=== PATIENT | male | born 1990 | race Asian ===

== ENCOUNTER 2017-05-11 22:04 | Inpatient (IN) | payer OTHER ==
[~2017-05-11] VITALS: Ht 182.9 cm; Wt 100.2 kg
[2017-05-11 22:23] LABS: BASOPHIL (%) 0.4 % (0-1); BASOPHIL COUNT 0.1 K/uL (0-0.1); EOSINOPHIL (%) 2.2 % (0-5); EOSINOPHIL COUNT 0.3 K/uL (0-0.3); HEMATOCRIT 46.3 % (38.0-50.0); HEMOGLOBIN 15.8 G/DL (12.5-16.6); IMMATURE GRANULOCYTE (%) 0.4 % (0.0-0.7); LYMPHOCYTE (%) 22.8 % (15-42); LYMPHOCYTE COUNT 2.7 K/uL (1.0-2.8); MCH 27.9 PG (29.0-34.0); MCHC 34.1 G/DL (30.0-36.0); MCV 81.8 FL (86-99); MONOCYTE (%) 5.4 % (3-12); MONOCYTE COUNT 0.6 K/uL (0-0.8); NEUTROPHIL (%) 68.8 % (45-76); PLATELET COUNT 224 K/uL (156-360); RBC DIS.WIDTH-SD 38.5 % (39-53); RED BLOOD COUNT 5.66 M/uL (4.00-5.50); WHITE BLOOD COUNT 11.6 K/uL (4.1-10.2)
[2017-05-11 22:33] LABS: AMYLASE 49 IU/L (1-118); CHLORIDE 103 mEq/L (99-109); POTASSIUM 3.6 mEq/L (3.7-5.4); SODIUM 137 mEq/L (136-147)
[2017-05-11 22:35] LABS: GLUCOSE 103 mg/dL (70-99)
[2017-05-11 22:38] LABS: SERUM ETHYL ALCOHOL < 10 mg/dL
[2017-05-11 22:39] LABS: CREATININE 0.9 mg/dL (0.6-1.3)
[2017-05-11 22:40] LABS: GFR ESTIMATE (CALCULATED) > 59 mL/min/ (58.99-99999); UREA NITROGEN (BUN) 16 mg/dL (9-23)
[2017-05-11 22:42] LABS: LIPASE 17 U/L (1.0-51.0)
[2017-05-12 00:55] LABS: APPEARANCE CLEAR ((CLEAR)); BILIRUBIN NEGATIVE; BLOOD NEGATIVE; COLOR YELLOW ((YELLOW)); GLUCOSE (STRIP) NEGATIVE; KETONES NEGATIVE; LEUKOCYTES NEGATIVE; NITRITE NEGATIVE; PROTEIN (STRIP) NEGATIVE; SPECIFIC GRAVITY 1.013 (1.000-1.030); UCUL ADDED? NO; UROBILINOGEN 0.2 MG/DL (0.2-1.0)
[2017-05-12 01:08] LABS: AMPHETAMINE NEGATIVE (500 ng/mL); BARBITURATES NEGATIVE (200 ng/mL); BENZODIAZEPINES NEGATIVE (150 ng/mL); BUPRENORPHINE NEGATIVE (10 ng/mL); COCAINE NEGATIVE (150 ng/mL); METHADONE NEGATIVE (200 ng/mL); METHAMPHETAMINE NEGATIVE (500 ng/mL); OPIATES (MORPHINE) PRESUMPTIVE POSITIVE (100 ng/mL); OXYCODONE NEGATIVE (100 ng/mL); PHENCYCLIDINE NEGATIVE (25 ng/mL); PROPOXYPHENE NEGATIVE (300 ng/mL); THC CANNABINOIDS NEGATIVE (50 ng/mL); TRICYCLIC ANTIDEPRESSANTS NEGATIVE (300 ng/mL)
[2017-05-12 04:56] VITALS: BP 117/64
[2017-05-12 08:14] VITALS: BP 100/53
[2017-05-12 11:50] VITALS: BP 113/58
[2017-05-12 16:13] VITALS: BP 116/64
[2017-05-12 18:59] LABS: HEMATOCRIT 41.4 % (38.0-50.0); HEMOGLOBIN 13.6 G/DL (12.5-16.6); MCH 26.8 PG (29.0-34.0); MCHC 32.9 G/DL (30.0-36.0); MCV 81.7 FL (86-99); PLATELET COUNT 213 K/uL (156-360); RBC DIS.WIDTH-CV 13.1 % (11.8-14.6); RBC DIS.WIDTH-SD 38.5 % (39-53); RED BLOOD COUNT 5.07 M/uL (4.00-5.50); WHITE BLOOD COUNT 13.4 K/uL (4.1-10.2)
[2017-05-12 19:06] LABS: CHLORIDE 101 MEQ/L (99-109); POTASSIUM 3.7 MEQ/L (3.7-5.4); SODIUM 135 MEQ/L (136-147)
[2017-05-12 19:12] LABS: CREATININE 0.8 MG/DL (0.6-1.3); GFR ESTIMATE (CALCULATED) > 59 mL/min/ (58.99-99999); GLUCOSE 126 mg/dL (70-99); UREA NITROGEN (BUN) 12 mg/dL (9-23)
[2017-05-12 23:29] VITALS: BP 114/62
[2017-05-13 08:34] VITALS: BP 109/53
[2017-05-13 15:33] VITALS: BP 115/60
[2017-05-13 23:42] VITALS: BP 110/58
[2017-05-14 09:10] VITALS: BP 88/58
[2017-05-14 13:12] VITALS: BP 117/58
[2017-05-14 23:03] VITALS: BP 115/63
[2017-05-15 05:40] LABS: HEMOGLOBIN 14.9 G/DL (12.5-16.6); MCH 28.8 PG (29.0-34.0); MCHC 34.7 G/DL (30.0-36.0); MCV 83.2 FL (86-99); PLATELET COUNT 248 K/uL (156-360); RBC DIS.WIDTH-CV 12.9 % (11.8-14.6); RBC DIS.WIDTH-SD 39.1 % (39-53); RED BLOOD COUNT 5.17 M/uL (4.00-5.50); WHITE BLOOD COUNT 9.2 K/uL (4.1-10.2)
[2017-05-15 06:20] LABS: AST (GOT) 37 IU/L (2-34)
[2017-05-15 06:22] LABS: ALBUMIN 3.9 G/DL (3.2-4.8); ALKALINE PHOSPHATASE 77 IU/L (3-129); ALT (GPT) 15 IU/L (3-49); CHLORIDE 97 MEQ/L (99-109); CREATININE 0.9 MG/DL (0.6-1.3); GFR ESTIMATE (CALCULATED) > 59 mL/min/ (58.99-99999); GLUCOSE 110 mg/dL (70-99); POTASSIUM 3.8 MEQ/L (3.7-5.4); SODIUM 135 MEQ/L (136-147); TOTAL BILIRUBIN 0.3 MG/DL (0.0-1.0); TOTAL PROTEIN 6.7 G/DL (6.4-8.3); UREA NITROGEN (BUN) 14 mg/dL (9-23)
[2017-05-15 07:28] VITALS: BP 109/73
[2017-05-15 15:40] VITALS: BP 97/50
[2017-05-15 23:12] VITALS: BP 122/61
[2017-05-16 04:46] VITALS: BP 106/57
[2017-05-16 09:13] VITALS: BP 114/56
[2017-05-16 11:48] VITALS: BP 111/67
[2017-05-16] MEDS ORDERED: NORCO 5/3251 TABLET PO (12:04)
== END 2017-05-16 13:08 | disposition home or self-care (01) | DRG 572 ==
LOC: TRA 22:04 → EDOF 05-12 00:09 → 3EAST 05-12 00:09 → EDOF 05-12 00:09 → ENRESERV 05-12 02:28 → 3EAST 05-12 04:14
PROVIDERS: Emergency Medicine; Physician Assistant Surgical; Surgery
DX: S31.020A Laceration with foreign body of lower back and pelvis without penetration into retroperitoneum, initial encounter (principal); S01.111A Laceration without foreign body of right eyelid and periocular area, initial encounter; S01.81XA Laceration without foreign body of other part of head, initial encounter; S06.2X0A Diffuse traumatic brain injury without loss of consciousness, initial encounter; V40.5XXA Car driver injured in collision with pedestrian or animal in traffic accident, initial encounter; G89.11 Acute pain due to trauma; S31.812A Laceration with foreign body of right buttock, initial encounter; Y92.411 Interstate highway as the place of occurrence of the external cause; F17.210 Nicotine dependence, cigarettes, uncomplicated; Y93.89 Activity, other specified
CPT/HCPCS: 70450; 71045; 74176; 80048; 80053; 81003; 82150; 83690; 84999; 85025; 85027; 86850; 86900; 86901; 99281; 99284; G0480; J0330; J0690; J1100; J1170; J1650; J2175; J2270; J2405; J3010